=== PATIENT | female | born 1945 | race Caucasian/White ===

== ENCOUNTER → 2017-08-30 | Outpatient (CLI) | payer MEDICARE, OTHER ==
[~2017-08-30] MED LIST: CALC600T63 PO; CHOL200022 PO; FLAX100042 PO; LEVO-3 PO; LEVO112T43 PO; LEVO125T77 PO; RED600CA19 PO
--- NOTE | 2017-08-31 09:36 | RADIOLOGY IMAGING REPORT ---
FACILITY: [facility] PATIENT NAME: CATHIE GRIFFITH : [id number] MR: [id number] V: [id number] EXAM DATE: ORDERING PHYSICIAN: CARLOS JUDGE TECHNOLOGIST: Mayra Gutierrez PROCEDURE:BILATERAL DIGITAL SCREENING MAMMOGRAM WITH CAD ASSISTED INTERPRETATION & 3D TOMOSYNTHESIS COMPARISON:Prior mammograms 08/23/16, 05/28/15, 04/17/14, 04/03/14, 03/22/13, 02/27/12. INDICATIONS:SCREENING FINDINGS: A small amount of fibroglandular tissue is seen throughout the breasts. The parenchymal pattern has remained stable allowing for difference in mammographic technique & patient positioning. There is no evidence of malignant appearing mass, malignant appearing calcifications or other secondary sign of malignancy in either breast. DIAGNOSTIC CATEGORY 1--NEGATIVE. RECOMMENDATIONS: ROUTINE MAMMOGRAM AND CLINICAL EVALUATION. IMPRESSION: BIRADS 1: Negative No significant abnormality is seen. Dictated by: Anjali Snowden M.D. on 08/30/2017 at 17:11 Transcribed by: DEA on 08/31/2017 at 8:59 Approved by: Anjali Snowden M.D. on 08/31/2017 at 9:35 [facility]
== END ==
LOC: MAMO 02:56
PROVIDERS: ATTEND Nurse Practitioner Psychiatric/Mental Health
DX: Z12.31 Encounter for screening mammogram for malignant neoplasm of breast (principal)
CPT/HCPCS: 77063; 77067

== ENCOUNTER → 2018-06-08 | Outpatient (CLI) | payer MEDICARE, OTHER ==
[~2018-06-08] MED LIST changes: +CHOL200018 PO; -CHOL200022 PO
--- NOTE | 2018-06-11 20:59 | RT HOLTER TEST ---
FACILITY: [facility] [place] PATIENT NAME: CATHIE GRIFFITH : [id number] MR: [id number] V: [id number] EXAM DATE: ORDERING PHYSICIAN: CARLOS JUDGE TECHNOLOGIST: MICHAEL Hook-up date: 2018-06-08 09:17:00 Duration: 47:56:00 Test Indications: PALPITATIONS Medications: N/A 032401 QRS complexes 91 Ventricular ectopics which represent <1 % of total QRS comp. 176 Supraventricular ectopics which represent <1 % of total QRS comp. * Paced QRS complexes which represent % of total QRS comp. VENTRICULAR ECTOPY 91 Isolated 0 Bigeminal Cycles 0 Couplets 0 Runs 0 Beats in Runs * Beats LONGEST at * BPM at :: -- * Beats FASTEST at * BPM at :: -- SUPRAVENTRICULAR ECTOPY 155 Isolated 4 Couplets 3 Runs 13 Beats in Runs 7 Beats LONGEST at 145 BPM at 17:05:54 2018-06-09 3 Beats FASTEST at 189 BPM at 14:27:29 2018-06-09 HEART RATES 53 MIN at 04:24:16 2018-06-10 81 AVG 161 MAX at 17:33:52 2018-06-09 LONGEST RR 1.304 secs at 03:20:08 2018-06-09 S-T LEVELS Channel 1 -12.800 mm MIN at 09:17:00 2018-06-08 -12.800 mm MAX at 09:17:00 2018-06-08 Channel 2 -12.800 mm MIN at 09:17:00 2018-06-08 -12.800 mm MAX at 09:17:00 2018-06-08 Channel 3 -12.800 mm MIN at 09:17:00 2018-06-08 -12.800 mm MAX at 09:17:00 2018-06-08 Appear to have two distinct p-wave morphologies demonstrated throughout test, appears to have 2 seper ate origins. 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 Positive halter study. Confirmed by Amarjit Fajardo ([id number]) on 06/11/2018 8:59:17 PM Referred By: Overread By: Amarjit Aguilera
== END ==
LOC: RESP 00:04
PROVIDERS: ATTEND Nurse Practitioner Psychiatric/Mental Health
DX: I49.3 Ventricular premature depolarization (principal); R00.0 Tachycardia, unspecified
CPT/HCPCS: 93225; 93226

== ENCOUNTER → 2018-12-11 | Outpatient (CLI) | payer MEDICARE, OTHER ==
--- NOTE | 2018-12-12 09:31 | RADIOLOGY IMAGING REPORT ---
FACILITY: [facility] - [place] PATIENT NAME: CATHIE GRIFFITH : [id number] MR: [id number] V: [id number] EXAM DATE: [id number] ORDERING PHYSICIAN: CARLOS JUDGE TECHNOLOGIST: Mayra Gutierrez PROCEDURE: BILATERAL DIGITAL SCREENING MAMMOGRAM WITH CAD ASSISTED INTERPRETATION & 3D TOMOSYNTHESIS. REASON FOR STUDY: Screening. FAMILY HISTORY OF BREAST CANCER: None. BREAST PROCEDURES/TREATMENTS: None. COMPARISON: 08/30/17, 08/23/16, 05/28/15, 04/17/14, 04/03/14, 03/22/13. VIEWS OBTAINED: Bilateral 2D & 3D full field CC & MLO projections. BREAST DENSITY: The breasts are almost entirely fatty. MAMMOGRAM FINDINGS: The parenchymal pattern has remained stable allowing for difference in mammographic technique & patient positioning. IMPRESSION: BIRADS 1: Negative. DIAGNOSTIC CATEGORY 1--NEGATIVE. RECOMMENDATIONS: ROUTINE MAMMOGRAM AND CLINICAL EVALUATION. Dictated by: Anjali Snowden M.D. on 12/11/2018 at 17:14 Transcribed by: DEA on 12/12/2018 at 9:22 Approved by: Anjali Snowden M.D. on 12/12/2018 at 9:27 [facility]
== END ==
LOC: MAMO 01:04
PROVIDERS: ATTEND Nurse Practitioner Psychiatric/Mental Health
DX: Z12.31 Encounter for screening mammogram for malignant neoplasm of breast (principal)
CPT/HCPCS: 77063; 77067